=== PATIENT | female | born 1955 | race African-American/Black ===

== ENCOUNTER 2017-11-29 02:22 | Emergency (ER) | payer OTHER ==
[~2017-11-29] VITALS: Ht 165.1 cm; Wt 90.9 kg
[2017-11-29] MEDS ORDERED: LISI1TAB9 PO (02:27)
[2017-11-29] MEDS ORDERED: KETOROLAC TROMETHAMINE 60 MG/2 ML VIAL IM ONE (03:27)
[2017-11-29] MEDS: KETOROLAC TROMETHAMINE 60 MG/2 ML VIAL IM ONE (03:28)
[2017-11-29 04:15] VITALS: BP 136/71
== END 2017-11-29 05:04 | disposition home or self-care (01) ==
LOC: EMS 02:22
DX: S13.4XXA Sprain of ligaments of cervical spine, initial encounter (principal); M54.6 Pain in thoracic spine; M54.5 Low back pain; I10 Essential (primary) hypertension; Z79.899 Other long term (current) drug therapy; V43.52XA Car driver injured in collision with other type car in traffic accident, initial encounter; Y93.89 Activity, other specified; Y92.411 Interstate highway as the place of occurrence of the external cause; Y99.8 Other external cause status
CPT/HCPCS: 72040; 72070; 72100; 96372; 99284; J1885

== ENCOUNTER 2019-12-22 14:18 | Inpatient (IN) | payer MEDICARE, OTHER ==
[~2019-12-22] VITALS: Ht 162.6 cm; Wt 88.9 kg
[~2019-12-22 14:18] MED LIST: DULO-8 PO; ESOM20CA31 PO; EZET10TA13 PO; GABA-1181 PO; HYDR-1475 PO; LISI-661 PO
[2019-12-22] MEDS ORDERED: INSULIN LISPRO 100 UNITS/ML SQ PRN (15:30)
[2019-12-22] MEDS ORDERED: DEXTROSE 50%-WATER 25 GM/50 ML SYRINGE IVP PRN (15:30)
[2019-12-22] MEDS ORDERED: MELATONIN 3 MG TABLET PO PRN (15:30)
[2019-12-22] MEDS ORDERED: *CLINICAL-WARFARIN SODIUM DOSING CLINICAL ONE (16:45)
[2019-12-22] MEDS ORDERED: WARFARIN SODIUM 3 MG TABLET PO ONE (17:00)
[2019-12-22] MEDS: NYSTATIN 500,000 UNITS/5 ML SUSPENSION UDCUP PO SCH (17:00)
[2019-12-22 17:34] LABS: GLUCOMETER DEV NAME(LOC) 2WR.2B; GLUCOSE,POINT OF CARE 75 MG/DL (70-110)
[2019-12-22 17:49] VITALS: BP 121/67
[2019-12-22] MEDS: FUROSEMIDE 20 MG TABLET PO SCH (20:17)
[2019-12-22] MEDS: CARVEDILOL 6.25 MG TABLET PO SCH (20:18)
[2019-12-22] MEDS: SENNA 187 MG TABLET PO SCH (20:18)
[2019-12-22] MEDS: GABAPENTIN 300 MG CAPSULE PO SCH (20:18)
[2019-12-22] MEDS: ATORVASTATIN CALCIUM 40 MG TABLET PO SCH (20:18)
[2019-12-22] MEDS: DOCUSATE SODIUM 100 MG CAPSULE PO SCH (20:18)
[2019-12-22] MEDS: DULoxetine HCL 60 MG CAPSULE PO SCH (20:18)
[2019-12-22] MEDS ORDERED: DOCUSATE SODIUM 100 MG CAPSULE PO SCH (21:00)
[2019-12-22 22:21] LABS: GLUCOMETER DEV NAME(LOC) 2WR.2B; GLUCOSE,POINT OF CARE 114 MG/DL (70-110)
[2019-12-23 03:00] VITALS: BP 124/73
[2019-12-23] MEDS: NYSTATIN 500,000 UNITS/5 ML SUSPENSION UDCUP PO SCH ×3 (03:01→17:32)
[2019-12-23 06:23] LABS: GLUCOMETER DEV NAME(LOC) 2WR.2B; GLUCOSE,POINT OF CARE 108 MG/DL (70-110)
[2019-12-23 07:43] LABS: EOSINOPHILS % (AUTO) 5.2 % (1.0-6.0); HEMATOCRIT 41.4 % (36-46); HEMOGLOBIN 14.1 g/dL (12.0-16.0); LYMPHOCYTES # (AUTO) 1.8 K/uL (1.0-4.8); LYMPHOCYTES % (AUTO) 39.1 % (22.0-44.0); MEAN CORPUSCULAR HEMOGLOBIN 30.8 pg (26.0-34.0); MEAN CORPUSCULAR VOLUME 91 fL (80-100); MONOCYTES # (AUTO) 0.6 K/uL (0.1-1.0); MONOCYTES % (AUTO) 12.1 % (2.0-9.0); NEUTROPHILS % (AUTO) 42.6 % (40.0-70.0); PLATELET COUNT (AUTO) 177 K/uL (150-450); RED BLOOD CELL COUNT(AUTO) 4.56 MIL/uL (4.00-5.20)
[2019-12-23 07:57] LABS: ALANINE AMINOTRANSFERASE 76 U/L (12-78); ALBUMIN 3.1 g/dL (3.4-5.0); ALKALINE PHOSPHATASE 66 U/L (46-116); ANION GAP 6 mmol/L (8-16); ASPARTATE AMINOTRANSFERASE 33 U/L (15-37); BILIRUBIN,TOTAL 0.4 mg/dL (0.1-1.0); CALCIUM, TOTAL 8.6 mg/dL (8.8-10.5); CARBON DIOXIDE 28 mmol/L (22-29); CHLORIDE 105 mmol/L (98-107); CREATININE 0.84 mg/dL (0.60-1.30); GLOMERULAR FILTR. RATE CALC > 60 mL/min (>60); GLUCOSE,RANDOM 107 mg/dL (70-110); POTASSIUM 3.9 mmol/L (3.5-5.1); SODIUM SERUM 139 mmol/L (136-145); TOTAL PROTEIN, SERUM 6.9 g/dL (6.4-8.2); UREA NITROGEN, BLOOD 8 mg/dL (7-18)
[2019-12-23 08:00] VITALS: BP 120/83
[2019-12-23] MEDS: EZETIMIBE 10 MG TABLET PO SCH (08:03)
[2019-12-23] MEDS: LISINOPRIL 10 MG TABLET PO SCH (08:04)
[2019-12-23] MEDS: ACETAMINOPHEN 325 MG TABLET PO PRN (08:04)
[2019-12-23] MEDS: FUROSEMIDE 20 MG TABLET PO SCH ×2 (08:04→20:56)
[2019-12-23] MEDS: DOCUSATE SODIUM 100 MG CAPSULE PO SCH ×2 (08:05→20:56)
[2019-12-23] MEDS: CARVEDILOL 6.25 MG TABLET PO SCH ×2 (08:05→20:57)
[2019-12-23] MEDS: FAMOTIDINE 20 MG TABLET PO SCH (08:05)
[2019-12-23] MEDS: MULTIVITAMINS WITH MINERALS, THERAPEUTIC TABLET PO SCH (08:05)
[2019-12-23] MEDS: GABAPENTIN 300 MG CAPSULE PO SCH ×3 (08:05→20:56)
[2019-12-23] MEDS: POTASSIUM CHLORIDE 20 MEQ ER TABLET PO SCH (08:05)
[2019-12-23] MEDS: ASPIRIN 81 MG CHEWABLE TABLET PO SCH (08:05)
[2019-12-23 08:24] LABS: PROTHROMBIN TIME 29.9 SEC (9.4-11.6)
[2019-12-23 13:23] LABS: GLUCOMETER DEV NAME(LOC) 2WR.2B; GLUCOSE,POINT OF CARE 116 MG/DL (70-110)
[2019-12-23 15:27] VITALS: BP 103/65
[2019-12-23] MEDS ORDERED: DOCU-275 PO (15:47)
[2019-12-23] MEDS ORDERED: MULT-29 PO (15:47)
[2019-12-23] MEDS ORDERED: FAMO20 PO (15:47)
[2019-12-23] MEDS ORDERED: POTA20TA83 PO (15:47)
[2019-12-23] MEDS ORDERED: ASPI-728 PO (15:47)
[2019-12-23] MEDS ORDERED: CARV6 PO (15:47)
[2019-12-23] MEDS ORDERED: ATOR40TA28 PO (15:47)
[2019-12-23] MEDS ORDERED: FURO20 PO (15:47)
[2019-12-23] MEDS ORDERED: WARFARIN SODIUM 3 MG TABLET PO ONE (17:00)
[2019-12-23 17:46] LABS: GLUCOMETER DEV NAME(LOC) 2WR.2B; GLUCOSE,POINT OF CARE 87 MG/DL (70-110)
[2019-12-23 20:45] VITALS: BP 113/68
[2019-12-23] MEDS: DULoxetine HCL 60 MG CAPSULE PO SCH (20:56)
[2019-12-23] MEDS: ATORVASTATIN CALCIUM 40 MG TABLET PO SCH (20:56)
[2019-12-23] MEDS: SENNA 187 MG TABLET PO SCH (20:57)
[2019-12-23 21:36] LABS: GLUCOMETER DEV NAME(LOC) 2WR.2B; GLUCOSE,POINT OF CARE 102 MG/DL (70-110)
[2019-12-24] MEDS: NYSTATIN 500,000 UNITS/5 ML SUSPENSION UDCUP PO SCH ×4 (02:54→20:26)
[2019-12-24 02:55] VITALS: BP 115/78
[2019-12-24] MEDS: ACETAMINOPHEN 325 MG TABLET PO PRN (02:55)
[2019-12-24 06:26] LABS: GLUCOMETER DEV NAME(LOC) 2WR.2B; GLUCOSE,POINT OF CARE 97 MG/DL (70-110)
[2019-12-24] MEDS: EZETIMIBE 10 MG TABLET PO SCH (08:17)
[2019-12-24] MEDS: FUROSEMIDE 20 MG TABLET PO SCH ×2 (08:17→20:25)
[2019-12-24] MEDS: DOCUSATE SODIUM 100 MG CAPSULE PO SCH ×2 (08:17→20:25)
[2019-12-24] MEDS: GABAPENTIN 300 MG CAPSULE PO SCH ×3 (08:17→20:26)
[2019-12-24] MEDS: CARVEDILOL 6.25 MG TABLET PO SCH ×2 (08:17→20:25)
[2019-12-24] MEDS: MULTIVITAMINS WITH MINERALS, THERAPEUTIC TABLET PO SCH (08:17)
[2019-12-24] MEDS: FAMOTIDINE 20 MG TABLET PO SCH (08:17)
[2019-12-24] MEDS: ASPIRIN 81 MG CHEWABLE TABLET PO SCH (08:17)
[2019-12-24] MEDS: LISINOPRIL 10 MG TABLET PO SCH (08:17)
[2019-12-24] MEDS: POTASSIUM CHLORIDE 20 MEQ ER TABLET PO SCH (08:17)
[2019-12-24 08:37] LABS: INR 2.9 (0.9-1.1); PROTHROMBIN TIME 29.2 SEC (9.4-11.6)
[2019-12-24] MEDS ORDERED: WARFARIN SODIUM-INR 2.0-3.0-RX DOSING PER PROTOCOL PO PRN (10:30)
[2019-12-24 11:29] VITALS: BP 110/60
[2019-12-24 16:00] VITALS: BP 113/67
[2019-12-24] MEDS ORDERED: WARFARIN SODIUM 3 MG TABLET PO ONE (17:00)
[2019-12-24 18:29] LABS: GLUCOMETER DEV NAME(LOC) 2WR.2B; GLUCOSE,POINT OF CARE 91 MG/DL (70-110)
[2019-12-24 20:25] VITALS: BP 118/71
[2019-12-24] MEDS: ATORVASTATIN CALCIUM 40 MG TABLET PO SCH (20:25)
[2019-12-24] MEDS: SENNA 187 MG TABLET PO SCH (20:25)
[2019-12-24] MEDS: DULoxetine HCL 60 MG CAPSULE PO SCH (20:25)
[2019-12-24 22:27] LABS: GLUCOMETER DEV NAME(LOC) 2WR.2B; GLUCOSE,POINT OF CARE 119 MG/DL (70-110)
[2019-12-25 01:40] VITALS: BP 123/81
[2019-12-25] MEDS: ACETAMINOPHEN 325 MG TABLET PO PRN (01:40)
[2019-12-25 05:30] LABS: GLUCOMETER DEV NAME(LOC) 2WR.1C; GLUCOSE,POINT OF CARE 117 MG/DL (70-110)
[2019-12-25 06:13] LABS: GLUCOMETER DEV NAME(LOC) 2WR.2B; GLUCOSE,POINT OF CARE 101 MG/DL (70-110)
[2019-12-25] MEDS ORDERED: WARF1TAB9 PO (07:02)
[2019-12-25] MEDS ORDERED: WARF5TAB40 PO (07:02)
[2019-12-25 07:08] LABS: INR 2.8 (0.9-1.1); PROTHROMBIN TIME 27.7 SEC (9.4-11.6)
[2019-12-25] MEDS: DOCUSATE SODIUM 100 MG CAPSULE PO SCH (09:00)
[2019-12-25 09:15] VITALS: BP 110/73
[2019-12-25] MEDS: GABAPENTIN 300 MG CAPSULE PO SCH (09:29)
[2019-12-25] MEDS: EZETIMIBE 10 MG TABLET PO SCH (09:29)
[2019-12-25] MEDS: NYSTATIN 500,000 UNITS/5 ML SUSPENSION UDCUP PO SCH (09:29)
[2019-12-25] MEDS: FAMOTIDINE 20 MG TABLET PO SCH (09:30)
[2019-12-25] MEDS: LISINOPRIL 10 MG TABLET PO SCH (09:30)
[2019-12-25] MEDS: POTASSIUM CHLORIDE 20 MEQ ER TABLET PO SCH (09:30)
[2019-12-25] MEDS: MULTIVITAMINS WITH MINERALS, THERAPEUTIC TABLET PO SCH (09:30)
[2019-12-25] MEDS: FUROSEMIDE 20 MG TABLET PO SCH (09:30)
[2019-12-25] MEDS: CARVEDILOL 6.25 MG TABLET PO SCH (09:30)
[2019-12-25] MEDS: ASPIRIN 81 MG CHEWABLE TABLET PO SCH (09:30)
[2019-12-25 15:43] LABS: GLUCOMETER DEV NAME(LOC) 2WR.1C; GLUCOSE,POINT OF CARE 122 MG/DL (70-110)
[2019-12-25] MEDS ORDERED: WARFARIN SODIUM 3 MG TABLET PO SCH (17:00)
== END 2019-12-25 14:28 | disposition home or self-care (01) | DRG 65 ==
LOC: 2WR 14:18
PROVIDERS: ADMIT Physical Medicine & Rehabilitation; ATTEND Physical Medicine & Rehabilitation
DX: I63.9 Cerebral infarction, unspecified (principal); I42.9 Cardiomyopathy, unspecified; E46 Unspecified protein-calorie malnutrition; I69.920 Aphasia following unspecified cerebrovascular disease; E11.9 Type 2 diabetes mellitus without complications; I10 Essential (primary) hypertension; I50.9 Heart failure, unspecified; F32.9 Major depressive disorder, single episode, unspecified; I51.3 Intracardiac thrombosis, not elsewhere classified
CPT/HCPCS: 87081; 92507; 97110; 97116; 97530; 97535